=== PATIENT | female | born 1940 | race Caucasian/White ===

== ENCOUNTER 2022-10-31 23:12 | Inpatient (IN) | payer MEDICARE, OTHER ==
[2022-10-31] MEDS ORDERED: SODIUM CHLORIDE 0.9% 500 ML 500 ML IV STA (23:42)
[2022-10-31] MEDS ORDERED: PANTOPRAZOLE 40 MG/10 ML VIAL IVP STA (23:42)
[2022-10-31] MEDS ORDERED: ONDANSETRON 4 MG/2 ML VIAL IVP STA (23:42)
--- NOTE | 2022-10-31 23:45 | ED ---
GI Bleed HPI - General Chief complaint: GI Bleed Stated complaint: Nausea, Vomiting, Coffee-Ground Emesis Time Seen by Provider: 10/31/22 23:19 Source: EMS, RN notes reviewed, old records reviewed, Caregiver Mode of arrival: EMS Limitations: altered mental status, physical limitation - History of Present Illness Initial comments: This is an 82-year-old female to the emergency department for evaluation. Patient presents today for evaluation regards to suspected neurological upper GI bleed. Patient has been vomiting she states for 2 days and staff became concerned that she was vomiting blood. Patient states she may have an ulcer she states she has never had an ulcer before but she did here people talking that she may have an ulcer. Patient has no complaints of abdominal pain. No active nausea and vomiting. Patient states that she is not on blood thinners although she is relatively poor strain secondary to age MD complaint: blood streaked emesis, coffee ground emesis (Per history) -: days(s) Radiation: none Severity scale (1-10): 7 Quality: cramping Consistency: constant Improves with: none Worsens with: none Context: other Associated Symptoms: nausea, vomiting, loss of appetite - Related Data Home Medications Medication Instructions Recorded Confirmed Acetaminophen Tab [Tylenol] 650 mg PO Q6H PRN 11/01/22 11/01/22 Acetaminophen Tab [Tylenol] 650 mg PO TID@0800,1700,209911/01/22 11/01/22 Carboxymethylcellulose Sodium 1 drop BOTH EYES TID@0800,1700,2100 11/01/22 11/01/22 [Refresh Tears] Cholecalciferol [Vitamin D3 (25 25 mcg PO DAILY@1700 11/01/22 11/01/22 Mcg = 1000 Iu)] Denosumab [Prolia] 60 mg SQ Q180D 11/01/22 11/01/22 Ensure Enlive 120 ml PO BID@0800,1700 11/01/22 11/01/22 Eucerin Cream 1 applic TOPICAL DAILY 11/01/22 11/01/22 Guaifenesin/Dextromethorphan 10 ml PO Q4H PRN 11/01/22 11/01/22 [Guaifenesin-Dm 100-10 mg/5 ml] Ipratropium-Albuterol Nebulize 3 ml INHALATION RT-Q6H 11/01/22 11/01/22 [Duoneb 0.5 mg-3 mg/3 ml Soln] L.acidoph,Paracasei, B.lactis 1 cap PO DAILY@0800 11/01/22 11/01/22 [Probiotic] Magnesium Hydroxide [Milk of 7,200 ml PO Q2D PRN 11/01/22 11/01/22 Magnesia Concentrate] Metoprolol Succinate (ER) [Toprol 25 mg PO HS 11/01/22 11/01/22 XL] Multivit-Min/FA/Lycopen/Lutein 1 tab PO DAILY@1700 11/01/22 11/01/22 [Centrum Silver Tablet] Na Phos,M-B/Na Phos,Di-Ba [Fleet 133 ml RECTAL DAILY PRN 11/01/22 11/01/22 Adult] [place]-3/Dha/Epa/Fish Oil [Fish Oil 1 cap PO DAILY@1700 11/01/22 11/01/22 EC 1,200 mg Softgel] Vit C/E/Zn/Coppr/Lutein/Zeaxan 1 cap PO BID@0800,1700 11/01/22 11/01/22 [Preservision Areds 2 Softgel] bisacodyL [Dulcolax] 10 mg RECTAL DAILY PRN 11/01/22 11/01/22 cloNIDine HCL [Catapres] 0.2 mg PO Q8H PRN 11/01/22 11/01/22 guaiFENesin [Mucinex] 600 mg PO BID@0800,1700 11/01/22 11/01/22 polyethylene glycoL 3350 [Miralax] 17 gm PO DAILY@0800 11/01/22 11/01/22 Previous Rx's Medication Instructions Recorded Pantoprazole Sodium [Protonix] 40 mg PO DAILY 30 Days #30 tab 11/03/22 Allergies Allergy/AdvReac Type Severity Reaction Status Date / Time codeine AdvReac Nausea Verified 11/01/22 09:36 morphine AdvReac Nausea Verified 11/01/22 09:36 Review of Systems ROS Statement: Those systems with pertinent positive or pertinent negative responses have been documented in the HPI. ROS Other: All systems not noted in ROS Statement are negative. Past Medical History Past Medical History: Heart Failure, Hyperlipidemia, Hypertension, Rheumatoid Arthritis (RA) Past Surgical History: No Surgical Hx Reported, Orthopedic Surgery Additional Past Surgical History / Comment(s): bilat knees Past Psychological History: Anxiety Smoking Status: Never smoker Past Alcohol Use History: None Reported Past Drug Use History: None Reported General Exam General appearance: alert, in no apparent distress Head exam: Present: atraumatic, normocephalic, normal inspection Eye exam: Present: normal appearance, PERRL, EOMI. Absent: scleral icterus, conjunctival injection, periorbital swelling ENT exam: Present: normal exam, mucous membranes moist Neck exam: Present: normal inspection. Absent: tenderness, meningismus, lymphadenopathy Respiratory exam: Present: normal lung sounds bilaterally. Absent: respiratory distress, wheezes, rales, rhonchi, stridor Cardiovascular Exam: Present: regular rate, normal rhythm, normal heart sounds. Absent: systolic murmur, diastolic murmur, rubs, gallop, clicks GI/Abdominal exam: Present: soft, normal bowel sounds. Absent: distended, tend erness, guarding, rebound, rigid Extremities exam: Present: normal inspection, full ROM, normal capillary refill. Absent: tenderness, pedal edema, joint swelling, calf tenderness Back exam: Present: normal inspection Neurological exam: Present: alert, oriented X3, CN II-XII intact Psychiatric exam: Present: normal affect, normal mood Skin exam: Present: warm, dry, intact, normal color. Absent: rash Course Vital Signs 10/31/22 11/01/22 11/01/22 23:16 06:00 12:00 Temperature 97.4 F L Pulse Rate 107 H 107 H 106 H Respiratory 17 18 18 Rate Blood Pressure 144/96 118/89 133/90 O2 Sat by Pulse 93 L 95 94 L Oximetry 11/01/22 11/01/22 11/01/22 15:24 17:57 21:29 Temperature 98.6 F Pulse Rate 115 H 116 H 118 H Respiratory 18 18 20 Rate Blood Pressure 167/106 157/99 O2 Sat by Pulse 92 L 94 L 94 L Oximetry - Reevaluation(s) Reevaluation #1: 11/01/22 00:32 Medical record is reviewed Reevaluation #2: 11/01/22 00:32 Patient continues with no GI bleeding here in the ER Reevaluation #3: 11/01/22 01:26 Patient has no bloody emesis here in the ER no coffee ground emesis here in the ER Patient informed results questions answered Reevaluation #4: 11/01/22 00:32 Was pt. sent in by a medical professional or institution ([facility], [facility], urgent care, hospital, or senior care...) When possible be specific @ -no Did you speak to anyone other than the patient for history (EMS, parent, family, police, friend...)? What history was obtained from this source @ -no Did you review nursing and triage notes (agree or disagree)? Why? @ -agree Are old charts reviewed (outside hosp., previous admission, EMS record, old EKG, old radiological studies, urgent care reports/EKG's, senior care records)? Report findings @ -yes Differential Diagnosis (chest pain, altered mental status, abdominal pain women, abdominal pain men, vaginal bleeding, weakness, fever, dyspnea, syncope, headache, dizziness, GI bleed, back pain, seizure, CVA, palpatations, mental health, musculoskeletal)? @ -prior EKG interpreted by me (3pts min.). @ -no X-rays interpreted by me (1pt min.). @ -yes CT interpreted by me (1pt min.). @ -yes U/S interpreted by me (1pt. min.). @ -no What testing was considered but not performed or refused? (CT, X-rays, U/S, labs)? Why? @ -none What meds were considered but not given or refused? Why? @ -none Did you discuss the management of the patient with other professionals (professionals i.e. [facility], [facility] [facility], lab, RT, psych nurse, psychologist social, internet developer, teacher, casino surveillance officer, catalytic case operator)? Give summary @ -no Was smoking cessation discussed for >3mins.? @ -no Was critical care preformed (if so, how long)? @ -no Were there social determinants of health that impacted care today? How? (Homelessness, low income, unemployed, alcoholism, drug addiction, transportation, low edu. Level, literacy, decrease access to med. care, halfway, rehab)? @ -none Was there de-escalation of care discussed even if they declined (Discuss DNR or withdrawal of care, Hospice)? DNR status @ -no What co-morbidities impacted this encounter? (DM, HTN, Smoking, COPD, CAD, Cancer, CVA, ARF, Chemo, Hep., AIDS, mental health diagnosis, sleep apnea, mor bid obesity)? @ -none Was patient admitted / discharged? Hospital course, mention meds given and [place], prescriptions, significant lab abnormalities, going to OR and other pertinent info. @ -82 female to the emergency department for evaluation today. Patient presents today for evaluation regards to abdominal pain with small bowel structure gastric outlet obstruction with nausea vomiting and upper GI bleed. Patient be admitted for further evaluation management surgical treatment and GI evaluation, possible SMA syndrome Admitted Undiagnosed new problem with uncertain prognosis? @ -no Drug Therapy requiring intensive monitoring for toxicity (Heparin, Nitro, Insulin, Cardizem)? @ -no Were any procedures done? @ -no Diagnosis/symptom? @ -Abdominal pain upper GI bleed with gastric obstruction possible SMA syndrome Acute, or Chronic, or Acute on Chronic? @ -Acute Uncomplicated (without systemic symptoms) or Complicated (systemic symptoms)? @ -Complicated Side effects of treatment? @ -no Exacerbation, Progression, or Severe Exacerbation? @ -exacerbation Poses a threat to life or bodily function? How? (Chest pain, [place], [place], pneumonia, PE, COPD, DKA, ARF, appy, cholecystitis, CVA, Diverticulitis, Homicidal, Suicidal, threat to staff... and all critical care pts) @ -yes Reevaluation #5: Differential Abdominal Pain Women: Appendicitis, Cholecystitis, diverticulosis, ischemic bowel, pancreatitis, hepatitis, UTI, gastroenteritis, AAA, incarcerated hernia, bowel obstruction, constipation, inflammatory bowel, hepatitis, peptic ulcer disease, splenic infarction, perforated viscus, vulvitis, ovarian torsion, PID, kidney stone, placenta abruption, this is not meant to be an all-inclusive list - Consultations Consultation #1: Spoke with [facility] regarding admission there agreed Consultation #2: Spoke with Dr. Villagran will await on computed tomography scan reading before he agrees to accept the patient Medical Decision Making - Medical Decision Making 82 female to the emergency department for evaluation today. Patient presents today for evaluation regards to abdominal pain with small bowel structure gastric outlet obstruction with nausea vomiting and upper GI bleed. Patient be admitted for further evaluation management surgical treatment and GI evaluation, possible SMA syndrome - Lab Data Result diagrams: 11/02/22 05:49 11/02/22 05:49 Lab Results 11/01/22 11/01/22 11/01/22 Range/Units 00:00 00:05 00:05 WBC 9.7 (3.8-10.6) k/uL RBC 4.94 (3.80-5.40) m/uL Hgb 13.9 (11.4-16.0) gm/dL Hct 42.5 (34.0-46.0) % MCV 86.0 (80.0-100.0) fL MCH 28.2 (25.0-35.0) pg MCHC 32.8 (31.0-37.0) g/dL RDW 14.1 (11.5-15.5) % Plt Count 324 (150-450) k/uL MPV 7.7 Neutrophils % 87 % Lymphocytes % 7 % Monocytes % 5 % Eosinophils % 0 % Basophils % 0 % Neutrophils # 8.4 H (1.3-7.7) k/uL Lymphocytes # 0.7 L (1.0-4.8) k/uL Monocytes # 0.5 (0-1.0) k/uL Eosinophils # 0.0 (0-0.7) k/uL Basophils # 0.0 (0-0.2) k/uL PT 10.8 (9.0-12.0) sec INR 1.0 (<1.2) APTT 23.4 (22.0-30.0) sec Sodium (137-145) mmol/L Potassium (3.5-5.1) mmol/L Chloride (98-107) mmol/L Carbon Dioxide (22-30) mmol/L Anion Gap mmol/L BUN (7-17) mg/dL Creatinine (0.52-1.04) mg/dL Est GFR (CKD-EPI)AfAm (>60 ml/min/1.73 sqM) Est GFR (CKD-EPI)NonAf (>60 ml/min/1.73 sqM) Glucose (74-99) mg/dL Calcium (8.4-10.2) mg/dL Total Bilirubin (0.2-1.3) mg/dL AST (14-36) U/L ALT (4-34) U/L Alkaline Phosphatase (38-126) U/L Ammonia (<30) umol/L Troponin I (0.000-0.034) ng/mL Total Protein (6.3-8.2) g/dL Albumin (3.5-5.0) g/dL Blood Type B Positive Blood Type Confirm Blood Type Recheck No Previous Record Bld Type Recheck Status CABO Indicated Antibody Screen NEGATIVE Spec Expiration Date 11/04/2022 - 229911/01/22 11/01/22 11/01/22 Range/Units 00:05 00:05 00:05 WBC (3.8-10.6) k/uL RBC (3.80-5.40) m/uL Hgb (11.4-16.0) gm/dL Hct (34.0-46.0) % MCV (80.0-100.0) fL MCH (25.0-35.0) pg MCHC (31.0-37.0) g/dL RDW (11.5-15.5) % Plt Count (150-450) k/uL MPV Neutrophils % % Lymphocytes % % Monocytes % % Eosinophils % % Basophils % % Neutrophils # (1.3-7.7) k/uL Lymphocytes # (1.0-4.8) k/uL Monocytes # (0-1.0) k/uL Eosinophils # (0-0.7) k/uL Basophils # (0-0.2) k/uL PT (9.0-12.0) sec INR (<1.2) APTT (22.0-30.0) sec Sodium 136 L (137-145) mmol/L Potassium 3.5 (3.5-5.1) mmol/L Chloride 103 (98-107) mmol/L Carbon Dioxide 23 (22-30) mmol/L Anion Gap 10 mmol/L BUN 25 H (7-17) mg/dL Creatinine 0.43 L (0.52-1.04) mg/dL Est GFR (CKD-EPI)AfAm >90 (>60 ml/min/1.73 sqM) Est GFR (CKD-EPI)NonAf >90 (>60 ml/min/1.73 sqM) Glucose 145 H (74-99) mg/dL Calcium 9.5 (8.4-10.2) mg/dL Total Bilirubin 0.6 (0.2-1.3) mg/dL AST 25 (14-36) U/L ALT 22 (4-34) U/L Alkaline Phosphatase 92 (38-126) U/L Ammonia 12 (<30) umol/L Troponin I <0.012 (0.000-0.034) ng/mL Total Protein 7.1 (6.3-8.2) g/dL Albumin 3.8 (3.5-5.0) g/dL Blood Type Blood Type Confirm Blood Type Recheck Bld Type Recheck Status Antibody Screen Spec Expiration Date 11/01/22 Range/Units 01:02 WBC (3.8-10.6) k/uL RBC (3.80-5.40) m/uL Hgb (11.4-16.0) gm/dL Hct (34.0-46.0) % MCV (80.0-100.0) fL MCH (25.0-35.0) pg MCHC (31.0-37.0) g/dL RDW (11.5-15.5) % Plt Count (150-450) k/uL MPV Neutrophils % % Lymphocytes % % Monocytes % % Eosinophils % % Basophils % % Neutrophils # (1.3-7.7) k/uL Lymphocytes # (1.0-4.8) k/uL Monocytes # (0-1.0) k/uL Eosinophils # (0-0.7) k/uL Basophils # (0-0.2) k/uL PT (9.0-12.0) sec INR (<1.2) APTT (22.0-30.0) sec Sodium (137-145) mmol/L Potassium (3.5-5.1) mmol/L Chloride (98-107) mmol/L Carbon Dioxide (22-30) mmol/L Anion Gap mmol/L BUN (7-17) mg/dL Creatinine (0.52-1.04) mg/dL Est GFR (CKD-EPI)AfAm (>60 ml/min/1.73 sqM) Est GFR (CKD-EPI)NonAf (>60 ml/min/1.73 sqM) Glucose (74-99) mg/dL Calcium (8.4-10.2) mg/dL Total Bilirubin (0.2-1.3) mg/dL AST (14-36) U/L ALT (4-34) U/L Alkaline Phosphatase (38-126) U/L Ammonia (<30) umol/L Troponin I (0.000-0.034) ng/mL Total Protein (6.3-8.2) g/dL Albumin (3.5-5.0) g/dL Blood Type Blood Type Confirm B Positive Blood Type Recheck Bld Type Recheck Status Antibody Screen Spec Expiration Date - Radiology Data Radiology results: report reviewed (CT head and pelvis is positive gastric L obstruction GI bleed chest x-rays negative for acute disease), image reviewed Disposition Clinical Impression: Nausea & vomiting, Upper gastrointestinal hemorrhage, Gastric outlet obstruction, Abdominal pain Disposition: ADMITTED IP TO THIS HOSP Condition: Fair Is patient prescribed a controlled substance at d/c from ED?: No Time of Disposition: 01:20
[2022-11-01 00:30] LABS: Partial Thromboplastin Time 23.4 sec (22.0-30.0); Prothrombin Time 10.8 sec (9.0-12.0)
[2022-11-01 00:34] LABS: ALT 22 U/L (4-34); AST 25 U/L (14-36); African American GFR (CKD) >90 (>60 ml/min/1.73 sqM); Albumin 3.8 g/dL (3.5-5.0); Alkaline Phosphatase 92 U/L (38-126); Anion Gap 10 mmol/L; Blood Urea Nitrogen 25 mg/dL (7-17); Calcium 9.5 mg/dL (8.4-10.2); Carbon Dioxide 23 mmol/L (22-30); Chloride 103 mmol/L (98-107); Glucose 145 mg/dL (74-99); Non-African American GFR(CKD) >90 (>60 ml/min/1.73 sqM); Potassium 3.5 mmol/L (3.5-5.1); Sodium 136 mmol/L (137-145); Total Bilirubin 0.6 mg/dL (0.2-1.3); Total Protein 7.1 g/dL (6.3-8.2)
[2022-11-01 00:35] LABS: Basophils % (A) 0 %; Eosinophils % (A) 0 %; HCT 42.5 % (34.0-46.0); HGB 13.9 gm/dL (11.4-16.0); Lymphocytes # (A) 0.7 k/uL (1.0-4.8); Lymphocytes % (A) 7 %; MCH 28.2 pg (25.0-35.0); MCHC 32.8 g/dL (31.0-37.0); Mean Platelet Volume 7.7; Monocytes # (A) 0.5 k/uL (0-1.0); Monocytes % (A) 5 %; Neutrophils # (A) 8.4 k/uL (1.3-7.7); Neutrophils % (A) 87 %; Platelet Count 324 k/uL (150-450); RBC 4.94 m/uL (3.80-5.40); RDW 14.1 % (11.5-15.5); WBC 9.7 k/uL (3.8-10.6)
[2022-11-01] MEDS ORDERED: ONDANSETRON 4 MG/2 ML VIAL IVP PRN (01:25)
[2022-11-01] MEDS ORDERED: NALOXONE 0.4 MG/ML 1 ML VIAL IV PRN (01:25)
--- NOTE | 2022-11-01 02:20 | CT ---
EXAM: CT Abdomen and Pelvis With Intravenous Contrast CLINICAL HISTORY: pain TECHNIQUE: Axial computed tomography images of the abdomen and pelvis with intravenous contrast. CTDI is 22.16 mGy and DLP is 1197.5 mGy-cm. This CT exam was performed using one or more of the following dose reduction techniques: automated exposure control, adjustment of the mA and/or kV according to patient size, and/or use of iterative reconstruction technique. COMPARISON: No relevant prior studies available. FINDINGS: Limitations: There is extensive respiratory artifact, which degrades image quality throughout the entire examination. Lung bases: Unremarkable. No mass. No consolidation. ABDOMEN: Liver: Evaluation of the liver is limited. No obvious focal abnormality. Gallbladder and bile ducts: The gallbladder is grossly unremarkable. Detailed evaluation limited. No biliary dilatation. No calcified stones. Pancreas: The pancreas is grossly unremarkable. No ductal dilation. Spleen: Spleen demonstrates no obvious significant abnormality. Adrenals: Unremarkable. No mass. Kidneys and ureters: The kidneys demonstrate normal enhancement. No hydronephrosis or definite obstructing nephrolithiasis. Bilateral renal cortical cysts noted with the largest cyst laterally on the left measuring 7.2 x 5.5 cm. Stomach and bowel: Prominent gas and fluid distention of the stomach. Fall distention of the distal thoracic esophagus with fluid and prominent distention of the descending portion of the duodenum with transition in decompression at the horizontal portion as it crosses the midline. The remaining small bowel loops are unremarkable without evidence for bowel obstruction. No obvious focal bowel mucosal abnormality; however, detailed evaluation is degraded by extensive respiratory artifact. Mild stool burden. PELVIS: Appendix: The appendix is not clearly delineated on this examination. Bladder: Unremarkable. No mass. Reproductive: Calcified fibroid noted in the uterus. ABDOMEN and PELVIS: Intraperitoneal space: Unremarkable. No free air. No significant fluid collection. Bones/joints: Degenerative changes throughout the thoracolumbar spine. Severe degenerative changes of the right hip with flattening and subluxation of the femoral head. No acute fracture. Soft tissues: Unremarkable. Vasculature: Unremarkable. No abdominal aortic aneurysm. Lymph nodes: Unremarkable. No enlarged lymph nodes. IMPRESSION: 1. There is extensive respiratory artifact, which degrades image quality throughout the entire examination. 2. Prominent gas and fluid distention of the stomach. Fall distention of the distal thoracic esophagus with fluid and prominent distention of the descending portion of the duodenum with transition in decompression at the horizontal portion as it crosses the midline. This may represent gastroduodenitis. However, this appearance raises the suspicion for SMA syndrome. 3. The remaining small bowel loops are unremarkable without evidence for bowel obstruction. No obvious focal bowel mucosal abnormality; however, detailed evaluation is degraded by extensive respiratory artifact. Mild stool burden. No free intraperitoneal fluid or definite pneumoperitoneum.
[2022-11-01] MEDS: SODIUM CHLORIDE 0.9% 1,000 ML IV SCH ×2 (03:14→18:25)
--- NOTE | 2022-11-01 05:01 | XR ---
EXAM: XR Chest, 1 View CLINICAL HISTORY: ITS.REASON XR Reason: confirm NG tube placement TECHNIQUE: Frontal view of the chest. COMPARISON: No relevant prior studies available. FINDINGS: Lungs: Curvilinear subsegmental changes in the infrahilar regions. The lungs are otherwise well aerated. The pulmonary vasculature demonstrates no significant radiographic abnormality. Pleural space: Unremarkable. No pneumothorax. No large pleural effusion. Heart: The cardiac silhouette is within normal limits, accounting for portable technique. Mediastinum: No significant abnormality. No tracheal the Filipino. Bones/joints: Unremarkable. Tubes, lines and devices: The nasogastric tube traverses the mediastinum and terminates in the left upper quadrant. IMPRESSION: The nasogastric tube traverses the mediastinum and terminates in the left upper quadrant in the region of the mid body of the stomach.
--- NOTE | 2022-11-01 08:40 | P.HPIM ---
History of Present Illness This is a pleasant 82 years old female with past medical history of Heart Failure, Hyperlipidemia, Hypertension, Rheumatoid Arthritis pt arrives to ED from [facility] via EMS for c/o coffee ground emesis x2 on tuesday yesterday. pt c/o nausea. skin pale/warm/dry. A&Ox4. Patient is a known history of rheumatoid arthritis and she is bedbound for severe deformity of the knees also she has deformities of the hands fingers. She is bedbound. However she's awake alert and oriented. Currently lying in bed comfortable, NG tube in place. Patient denies any abdominal pain. No change in bowel movements. She denies smoking alcohol or illicit drugs. No other complaints. No chest pain or dyspnea. No change in urine habits. No headache weakness numbness or dizziness. Patient is mildly tachycardic with heart rate around 107. Blood pressure stable. Patient is afebrile. Hemoglobin stable at 13.9 which is within the reference range. Most of CBC, INR and BMP, liver enzymes, troponin and ammonia levels are unremarkable. Chest x-ray: No acute process. NG tube the stomach region. CT of the abdomen and pelvis with intravenous contrast: Prominent gas and fluid distention of the stomach. Full distention of the distal thoracic esophagus with prominent distention of the descending portion of the duodenum with transition in decompression of the horizontal portion as it crosses the midline. This may represent gastroenteritis over there is suspicion for SMA syndrome. No evidence of small bowel obstruction Normal saline at 75 mL/h was started emergency room Review of Systems Review of systems CONSTITUTIONAL: No fever, no malaise, no fatigue. HEENT: No recent visual problems or hearing problems. Denied any sore throat. CARDIOVASCULAR: No orthopnea, PND, no palpitations, no syncope. PULMONARY: No shortness of breath, no cough, no hemoptysis. GASTROINTESTINAL: No diarrhea, no abdominal pain. Normoactive bowel sounds. NEUROLOGICAL: No headaches, no weakness, no numbness. HEMATOLOGICAL: Denies any bleeding or petechiae. GENITOURINARY: Denies any burning micturition, frequency, or urgency. MUSCULOSKELETAL/RHEUMATOLOGICAL: Denies any joint pain, swelling, or any muscle pain. ENDOCRINE: Denies any polyuria or polydipsia. Past Medical History Past Medical History: Heart Failure, Hyperlipidemia, Hypertension, Rheumatoid Arthritis (RA) Past Surgical History: No Surgical Hx Reported, Orthopedic Surgery Additional Past Surgical History / Comment(s): bilat knees Past Psychological History: Anxiety Smoking Status: Never smoker Past Alcohol Use History: None Reported Past Drug Use History: None Reported Medications and Allergies Allergies Allergy/AdvReac Type Severity Reaction Status Date / Time codeine Allergy Nausea Verified 10/31/22 23:25 morphine Allergy Nausea Verified 10/31/22 23:25 Physical Exam Vitals: Vital Signs Temp Pulse Resp BP Pulse Ox 11/01/22 06:00 107 H 18 118/89 95 10/31/22 23:16 97.4 F L 107 H 17 144/96 93 L Intake and Output 10/31/22 11/01/22 11/01/22 22:59 06:59 14:59 Other: Weight 71.668 kg GENERAL: The patient is alert and oriented x3, not in any acute distress. Well developed, well nourished. HEENT: Pupils are round and equally reacting to light. EOMI. No scleral icterus. No conjunctival pallor. Normocephalic, atraumatic. No pharyngeal erythema. No thyromegaly. CARDIOVASCULAR: S1 and S2 present. No murmurs, rubs, or gallops. PULMONARY: Chest is clear to auscultation, no wheezing , no crackles. ABDOMEN: Soft, nontender, nondistended, normoactive bowel sounds. No palpable organomegaly. NG tube in place MUSCULOSKELETAL: No joint swelling or deformity. -EXTREMITIES: No cyanosis, clubbing, or pedal edema. Both knees are in flexion posture secondary to contracture (looks chronic) ulnar deviations of the hand fingers bilaterally NEUROLOGICAL: Gross neurological examination did not reveal any focal deficits. SKIN: No rashes. no petechiae. Results CBC & Chem 7: 11/01/22 00:05 11/01/22 00:05 Labs: Abnormal Lab Results - Last 24 Hours (Table) 11/01/22 11/01/22 Range/Units 00:05 00:05 Neutrophils # 8.4 H (1.3-7.7) k/uL Lymphocytes # 0.7 L (1.0-4.8) k/uL Sodium 136 L (137-145) mmol/L BUN 25 H (7-17) mg/dL Creatinine 0.43 L (0.52-1.04) mg/dL Glucose 145 H (74-99) mg/dL Assessment and Plan Assessment: Coffee-ground vomitus suspicious for acute GI bleed Distended esophagus, stomach and duodenum suspicious for acute gastroenteritis Versus SMA Syndrome Hyperlipidemia Hypertension Chronic heart failure History of rheumatoid arthritis Plan: Continue gentle hydration continue with symptomatic treatment with anti-emetic Surgical team consult Nothing by mouth Monitor hemoglobin Protonix Labs and medication were reviewed.. Continue same treatment. Continue with symptomatic treatment. Resume home medication. Monitor labs and vitals. DVT and GI prophylaxis. Further recommendations as per clinical course of the patient DVT prophylaxis: no Subcutaneous heparin for GI bleed, S CD GI Prophylaxis: Ppi PT/OT: Pending Prognosis is guarded
[2022-11-01] MEDS: PANTOPRAZOLE 40 MG/10 ML VIAL IV SCH (09:10)
[2022-11-01] MEDS ORDERED: IOPAMIDOL CONTRAST (ORAL USE) VIAL PO PRN (11:21)
--- NOTE | 2022-11-01 13:53 | P.GSCN ---
History of Present Illness Consult date: 11/01/22 History of present illness: CHIEF COMPLAINT: Vomiting, coffee-ground emesis HISTORY OF PRESENT ILLNESS: This is a 82-year-old female who presented to the hospital with 2 day history of nausea and vomiting at [facility]. Reporting that the emesis was dark and possibly coffee-ground consistency. She did have some mild upper abdomen discomfort. She reports regular bowel movements. She's never had an EGD or colonoscopy completed. Computed tomography scan abdomen and pelvis reported prominent gas and fluid distention of the stomach. Distention of the distal thoracic esophagus with fluid and prominent distention of the descending portion of the duodenum. Patient did have NG tube placed with currently 250 mL of dark brown green output. Patient denies being on any blood thinners or NSAIDs. Hemoglobin stable at 13.9. She has been tachycardic. She denies any prior abdominal surgeries. Patient reports that the nausea, vomiting and abdominal discomfort have improved since NG tube placed PAST MEDICAL HISTORY: Heart Failure, Hyperlipidemia, Hypertension, Rheumatoid Arthritis (RA), anxiety PAST SURGICAL HISTORY: See below MEDICATIONS: See below ALLERGIES: See below SOCIAL HISTORY: No illicit drug use. REVIEW OF SYSTEMS: CONSTITUTIONAL: Denies fever or chills. HEENT: Denies blurred vision, vision changes, or eye pain. Denies hemoptysis CARDIOVASCULAR: Denies chest pain or pressure. RESPIRATORY: No shortness of breath. GASTROINTESTINAL: See HPI for pertinent findings HEMATOLOGIC: Denies bleeding disorders. GENITOURINARY: Denies any blood in urine or increased urinary frequency. SKIN: Denies pruitis. Denies rash. PHYSICAL EXAM: VITAL SIGNS: Reviewed GENERAL: Well-developed in no acute distress. HEENT: No sclera icterus. Extraocular movements grossly intact. Moist buccal mucosa. Head is atraumatic, normocephalic. No nasal drainage. ABDOMEN: Soft. Nondistended. Nontender. NG tube in place with dark brown, greenish output NEUROLOGIC: Alert and oriented. Cranial nerves II through XII grossly intact. LABORATORY DATA: WBC is 9.7 Hgb 13.9 and platelets 324 Sodium 136 potassium 3.5 creatinine 0.43 INR 1.0 IMAGING: Computed tomography scan abdomen and pelvis extensive respiratory artifact. Prominent gas and fluid distention of the stomach. Distention of the distal thoracic esophagus with fluid and prominent distention of the descending portion of the duodenal and will transition intake pressing at the horizontal portion as it crosses the midline. This may represent a gastroduodenitis. However the appearance raises suspicion for SMA syndrome. Small bowel loops are unremarkable without evidence for bowel obstruction. No intraperitoneal fluid or definite pneumoperitoneum. ASSESSMENT: 1. Nausea and vomiting with upper abdominal pain 2. Computed tomography scan showing distention of the stomach, esophagus and duodenum PLAN: -Repeat computed tomography scan abdomen and pelvis with oral contrast for further evaluation -Continue NG tube for decompression -Keep patient nothing by mouth -EKG ordered for tachycardia. EKG did report sinus tach heart rate 111 -Patient tentatively scheduled for EGD tomorrow, 11/02/[address]agran -Continue IV Protonix -Continue IV fluid -Continue antibiotics Thank you for this consultation Physician Tobacco Sorter note has been reviewed by physician. Signing provider agrees with the documented findings, assessment, and plan of care. Past Medical History Past Medical History: Heart Failure, Hyperlipidemia, Hypertension, Rheumatoid Arthritis (RA) Past Surgical History: No Surgical Hx Reported, Orthopedic Surgery Additional Past Surgical History / Comment(s): bilat knees Past Psychological History: Anxiety Smoking Status: Never smoker Past Alcohol Use History: None Reported Past Drug Use History: None Reported Medications and Allergies Home Medications Medication Instructions Recorded Confirmed Type Acetaminophen Tab [Tylenol] 650 mg PO Q6H PRN 11/01/22 11/01/22 History Acetaminophen Tab [Tylenol] 650 mg PO TID@0800,1700,209911/01/22 11/01/22 History Carboxymethylcellulose Sodium 1 drop BOTH EYES TID@0800,1700,209911/01/22 11/01/22 History [Refresh Tears] Cholecalciferol [Vitamin D3 (25 25 mcg PO DAILY@1700 11/01/22 11/01/22 History Mcg = 1000 Iu)] Denosumab [Prolia] 60 mg SQ Q180D 11/01/22 11/01/22 History Ensure Enlive 120 ml PO BID@0800,1700 11/01/22 11/01/22 History Eucerin Cream 1 applic TOPICAL DAILY 11/01/22 11/01/22 History Guaifenesin/Dextromethorphan 10 ml PO Q4H PRN 11/01/22 11/01/22 History [Guaifenesin-Dm 100-10 mg/5 ml] Ipratropium-Albuterol Nebulize 3 ml INHALATION RT-Q6H 11/01/22 11/01/22 History [Duoneb 0.5 mg-3 mg/3 ml Soln] L.acidoph,Paracasei, B.lactis 1 cap PO DAILY@0800 11/01/22 11/01/22 History [Probiotic] Magnesium Hydroxide [Milk of 7,200 ml PO Q2D PRN 11/01/22 11/01/22 History Magnesia Concentrate] Metoprolol Succinate (ER) [Toprol 25 mg PO HS 11/01/22 11/01/22 History Xl] Multivit-Min/FA/Lycopen/Lutein 1 tab PO DAILY@1700 11/01/22 11/01/22 History [Centrum Silver Tablet] Na Phos,M-B/Na Phos,Di-Ba [Fleet 133 ml RECTAL DAILY PRN 11/01/22 11/01/22 History Adult] [place]-3/Dha/Epa/Fish Oil [Fish Oil 1 cap PO DAILY@1700 11/01/22 11/01/22 History EC 1,200 mg Softgel] Vit C/E/Zn/Coppr/Lutein/Zeaxan 1 cap PO BID@0800,1700 11/01/22 11/01/22 History [Preservision Areds 2 Softgel] bisacodyL [Dulcolax] 10 mg RECTAL DAILY PRN 11/01/22 11/01/22 History cloNIDine HCL [Catapres] 0.2 mg PO Q8H PRN 11/01/22 11/01/22 History guaiFENesin [Mucinex] 600 mg PO BID@0800,1700 11/01/22 11/01/22 History polyethylene glycoL 3350 [Miralax] 17 gm PO DAILY@0800 11/01/22 11/01/22 History Allergies Allergy/AdvReac Type Severity Reaction Status Date / Time codeine AdvReac Nausea Verified 11/01/22 09:36 morphine AdvReac Nausea Verified 11/01/22 09:36 Surgical - Exam Vital Signs Temp Pulse Resp BP Pulse Ox 97.4 F L 107 H 17 144/96 93 L 10/31/22 23:16 10/31/22 23:16 10/31/22 23:16 10/31/22 23:16 10/31/22 23:16 Results - Labs 11/01/22 00:05 11/01/22 00:05 Abnormal Lab Results - Last 24 Hours (Table) 11/01/22 11/01/22 Range/Units 00:05 00:05 Neutrophils # 8.4 H (1.3-7.7) k/uL Lymphocytes # 0.7 L (1.0-4.8) k/uL Sodium 136 L (137-145) mmol/L BUN 25 H (7-17) mg/dL Creatinine 0.43 L (0.52-1.04) mg/dL Glucose 145 H (74-99) mg/dL Diabetes panel 11/01/22 Range/Units 00:05 Sodium 136 L (137-145) mmol/L Potassium 3.5 (3.5-5.1) mmol/L Chloride 103 (98-107) mmol/L Carbon Dioxide 23 (22-30) mmol/L BUN 25 H (7-17) mg/dL Creatinine 0.43 L (0.52-1.04) mg/dL Glucose 145 H (74-99) mg/dL Calcium 9.5 (8.4-10.2) mg/dL AST 25 (14-36) U/L ALT 22 (4-34) U/L Alkaline Phosphatase 92 (38-126) U/L Total Protein 7.1 (6.3-8.2) g/dL Albumin 3.8 (3.5-5.0) g/dL Calcium panel 11/01/22 Range/Units 00:05 Calcium 9.5 (8.4-10.2) mg/dL Albumin 3.8 (3.5-5.0) g/dL Pituitary panel 11/01/22 Range/Units 00:05 Sodium 136 L (137-145) mmol/L Potassium 3.5 (3.5-5.1) mmol/L Chloride 103 (98-107) mmol/L Carbon Dioxide 23 (22-30) mmol/L BUN 25 H (7-17) mg/dL Creatinine 0.43 L (0.52-1.04) mg/dL Glucose 145 H (74-99) mg/dL Calcium 9.5 (8.4-10.2) mg/dL Adrenal panel 11/01/22 Range/Units 00:05 Sodium 136 L (137-145) mmol/L Potassium 3.5 (3.5-5.1) mmol/L Chloride 103 (98-107) mmol/L Carbon Dioxide 23 (22-30) mmol/L BUN 25 H (7-17) mg/dL Creatinine 0.43 L (0.52-1.04) mg/dL Glucose 145 H (74-99) mg/dL Calcium 9.5 (8.4-10.2) mg/dL Total Bilirubin 0.6 (0.2-1.3) mg/dL AST 25 (14-36) U/L ALT 22 (4-34) U/L Alkaline Phosphatase 92 (38-126) U/L Total Protein 7.1 (6.3-8.2) g/dL Albumin 3.8 (3.5-5.0) g/dL
[2022-11-01 15:51] LABS: HCT 39.7 % (34.0-46.0); HGB 13.1 gm/dL (11.4-16.0); MCH 28.6 pg (25.0-35.0); MCV 86.5 fL (80.0-100.0); Mean Platelet Volume 8.4; Platelet Count 297 k/uL (150-450); RBC 4.59 m/uL (3.80-5.40); RDW 14.4 % (11.5-15.5); WBC 11.1 k/uL (3.8-10.6)
--- NOTE | 2022-11-01 16:46 | CT ---
EXAMINATION TYPE: CT abdomen pelvis wo con CT DLP: 732.6 mGycm, Automated exposure control for dose reduction was used. DATE OF EXAM: 11/01/2022 4:30 PM COMPARISON: CT abdomen pelvis most recent from 11/01/2022 CLINICAL INDICATION:Female, 82 years old with history of abdominal pain, vomiting; abdominal pain, vo miting TECHNIQUE: Axial CT of the abdomen and pelvis. Sagittal and coronal reformats were created on a [employer] workstation. Contrast used: mL of , (none if empty) Oral contrast used: with Oral Contrast (none if empty) FINDINGS: LOWER CHEST: There is mildly enlarged for size with coronary artery cusp medications. ABDOMEN LIVER: Unremarkable GALLBLADDER AND BILE DUCTS: Unremarkable. PANCREAS: Unremarkable. SPLEEN: Unremarkable. ADRENAL GLANDS: Unremarkable. KIDNEYS AND URETERS: High density excreted IV contrast in the collecting system from same day CT scan . No evidence of hydronephrosis or renal calculus. Bilateral renal cysts. PELVIS BLADDER: Unremarkable REPRODUCTIVE: Enlarged fibroid uterus with calcification. ABDOMEN & PELVIS STOMACH AND BOWEL: Nasogastric tube terminating in appropriate position. No evidence of bowel obstruc tion. PERITONEUM/RETROPERITONEUM: No evidence of pneumoperitoneum or free fluid. VASCULATURE: No evidence of aortic aneurysm. 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 Small joint effusion is present. Severe degeneration changes of the spine. LYMPH NODES: No gross evidence for lymphadenopathy. SOFT TISSUE/ABDOMINAL WALL: Unremarkable IMPRESSION: 1. There is interval decompression of the gastric lumen with a nasogastric tube in appropriate posit ion. The remainder the exam is not changed from prior change from prior. No evidence for bowel obstru ction. 2. Fibroid uterus.
[2022-11-01] MEDS ORDERED: METOPROLOL SUCCINATE (ER) 25 MG TAB.ER.24H PO STA (21:09)
[2022-11-02] MEDS ORDERED: hydrALAZINE HCL 20 MG/ML 1 ML VIAL IVP PRN (00:30)
[2022-11-02] MEDS: SODIUM CHLORIDE 0.9% 1,000 ML IV SCH ×2 (04:42→20:43)
[2022-11-02] MEDS ORDERED: LIDOCAINE 2% INJ 20 MG/ML (2 ML VIAL) ONE (07:04)
[2022-11-02] MEDS ORDERED: PROPOFOL 10 MG/ML 20 ML VIAL IV ONE (07:04)
[2022-11-02] MEDS ORDERED: IV FLUID CONTINUATION 1,000 ML IV ONE (07:08)
--- NOTE | 2022-11-02 07:21 | P.OP ---
Date of Procedure: 11/02/22 Preoperative Diagnosis: Nausea, vomiting Postoperative Diagnosis: Antral gastritis Esophagitis No evidence of gastric outlet obstruction Procedure(s) Performed: EGD Anesthesia: MAC Surgeon: Baldo Villagran Pathology: other (Antrum, esophagus) Condition: stable Disposition: PACU Description of Procedure: Patient's placed on the endoscopy table in the lateral position. She received IV sedation. The gastro-/oropharynx passed in the esophagus and stomach. Scope was then placed through the pylorus. The first and second portion duodenum. Normal. Scope summer back the antrum this was mildly inflamed. A biopsies performed. Scope was unretroflexed and the remainder of the stomach appeared normal. There was a hiatal hernia noted. The GE junction was at 38 cm per the distal esophagus appeared mildly inflamed a biopsies performed. The proximal esophagus appeared normal. Scope withdrawn for patient.
[2022-11-02] MEDS: PANTOPRAZOLE 40 MG/10 ML VIAL IV SCH (08:52)
[2022-11-02 09:24] LABS: Basophils # (A) 0.05 X 10*3/uL (0.00-0.10); Basophils % (A) 0.4 %; Eosinophils # (A) 0.03 X 10*3/uL (0.04-0.35); Eosinophils % (A) 0.3 %; HCT 39.7 % (37.2-46.3); HGB 12.7 d/dL (12.0-15.0); Lymphocytes # (A) 0.82 X 10*3/uL (0.90-5.00); Lymphocytes % (A) 6.9 %; MCH 27.3 pg (27.0-32.0); MCV 85.4 FL (80.0-97.0); Mean Platelet Volume 10.3 FL (9.5-12.2); Monocytes # (A) 0.94 X 10*3/uL (0.20-1.00); Monocytes % (A) 7.9 %; NRBC Per 100 WBC 0 X 10*3/uL (0.00-0.01); Neutrophils # (A) 9.95 X 10*3/uL (1.80-7.70); Neutrophils % (A) 84.1 %; Platelet Count 307 X 10*3/uL (140-440); RBC 4.65 X 10*6/uL (4.10-5.20); RDW 15.2 % (11.5-14.5); WBC 11.84 X 10*3/uL (4.50-10.00)
[2022-11-02 10:13] LABS: ALT 32 U/L (8-44); AST 29 U/L (13-35); Albumin 4.1 d/dL (3.8-4.9); Albumin/Globulin Ratio 1.71 Ratio (1.60-3.17); Alkaline Phosphatase 74 U/L (41-126); BUN/Creat Ratio 41.25 Ratio (12.00-20.00); Blood Urea Nitrogen 16.5 mg/dL (9.0-27.0); Calcium 8.9 mg/dL (8.7-10.3); Carbon Dioxide 24.8 mmol/L (21.6-31.8); Chloride 104 mmol/L (96-109); Globulin 2.4 d/dL (1.6-3.3); Glucose 99 mg/dL (70-110); Phosphorus 2.2 mg/dL (2.4-5.1); Potassium 3.6 mmol/L (3.5-5.5); Sodium 140 mmol/L (135-145); Total Bilirubin 0.5 mg/dL (0.3-1.2); Total Protein 6.5 d/dL (6.2-8.2)
--- NOTE | 2022-11-02 12:43 | P.PN ---
Subjective Progress Note Date: 11/02/22 CHIEF COMPLAINT: Nausea and vomiting HISTORY OF PRESENT ILLNESS: Patient status post EGD today revealing antral gastritis, esophagitis and no evidence of gastric outlet obstruction. Patient lying in bed comfortably. Reports no abdominal pain. No nausea or vomiting. Her repeat computed tomography scan from yesterday reports interval decompression of the gastric lumen with NG tube. No evidence for bowel obstruction. Fibroid uterus. Afebrile. Mildly tachycardic. WBC 11.8 for Hgb 12.7 PHYSICAL EXAM: VITAL SIGNS: Reviewed. GENERAL: Well-developed in no acute distress. ABDOMEN: Soft. Nondistended. Nontender. NEUROLOGIC: Alert and oriented. Cranial nerves II through XII grossly intact. ASSESSMENT: 1. Nausea and vomiting resolved. Status post EGD revealing antral gastritis, esophagitis and no evidence of gastric outlet obstruction PLAN: -Advanced at full liquids -Continue PPI -Continue supportive care Physician Supply Chain Manager note has been reviewed by physician. Signing provider agrees with the documented findings, assessment, and plan of care. Objective - Vital Signs Vital signs: Vital Signs Temp 97.6 F 11/02/22 07:49 Pulse 95 11/02/22 07:49 Resp 17 11/02/22 07:49 BP 135/83 11/02/22 07:49 Pulse Ox 94 L 11/02/22 07:49 FiO2 Intake & Output 11/01/22 11/02/22 11/02/22 18:59 06:59 18:59 Intake Total 200 Balance 200 Weight 71.668 kg Intake: IV 200 Other: Voiding Method Diaper Diaper External Catheter External Catheter # Voids 0 - Labs CBC & Chem 7: 11/02/22 05:49 11/02/22 05:49 Labs: Abnormal Lab Results - Last 24 Hours (Table) 11/01/22 11/02/22 11/02/22 Range/Units 15:03 05:49 05:49 WBC 11.1 H 11.84 H (3.8-10.6) k/uL RDW 15.2 H (11.5-14.5) % Neutrophils # 9.95 H (1.80-7.70) X 10*3/uL Lymphocytes # 0.82 L (0.90-5.00) X 10*3/uL Eosinophils # 0.03 L (0.04-0.35) X 10*3/uL Creatinine 0.4 L (0.6-1.5) mg/dL BUN/Creatinine Ratio 41.25 H (12.00-20.00) Ratio Phosphorus 2.2 L (2.4-5.1) mg/dL
--- NOTE | 2022-11-02 22:33 | P.PN ---
Subjective This is a pleasant 82 years old female with past medical history of Heart Failure, Hyperlipidemia, Hypertension, Rheumatoid Arthritis pt arrives to ED from [facility] via EMS for c/o coffee ground emesis x2 on tuesday yesterday. pt c/o nausea. skin pale/warm/dry. A&Ox4. Patient is a known history of rheumatoid arthritis and she is bedbound for se elmer deformity of the knees also she has deformities of the hands fingers. She is bedbound. However she's awake alert and oriented. Currently lying in bed comfortable, NG tube in place. Patient denies any abdominal pain. No change in bowel movements. She denies smoking alcohol or illicit drugs. No other complaints. No chest pain or dyspnea. No change in urine habits. No headache weakness numbness or dizziness. Patient is mildly tachycardic with heart rate around 107. Blood pressure sta ble. Patient is afebrile. Hemoglobin stable at 13.9 which is within the reference range. Most of CBC, INR and BMP, liver enzymes, troponin and ammonia levels are unremarkable. Chest x-ray: No acute process. NG tube the stomach region. CT of the abdomen and pelvis with intravenous contrast: Prominent gas and fluid distention of the stomach. Full distention of the distal thoracic esophagus with prominent distention of the descending portion of the duodenum with transition in decompression of the horizontal portion as it crosses the midline. This may represent gastroenteritis over there is suspicion for SMA syndrome. No evidence of small bowel obstruction Normal saline at 75 mL/h was started emergency room 11/02/2022 No more coffee ground vomitus, no new symptoms Hemodynamically stable EGD showed antral gastritis, esophagitis and no gastric outlet obstruction Patient continue on the Protonix twice daily Liquid diet Discontinue IV fluid Monitored for another 24 hours and if she remains stable and improvement she may be considered for discharge in 24- 48 hours Objective - Vital Signs Vital signs: Vital Signs Temp 97.6 F 11/02/22 07:49 Pulse 95 11/02/22 07:49 Resp 17 11/02/22 07:49 BP 135/83 11/02/22 07:49 Pulse Ox 94 L 11/02/22 07:49 FiO2 Intake & Output 11/01/22 11/02/22 11/02/22 18:59 06:59 18:59 Intake Total 200 Balance 200 Weight 71.668 kg Intake: IV 200 Other: Voiding Method Diaper Diaper External Catheter External Catheter # Voids 0 - Exam GENERAL: The patient is alert and oriented x3, not in any acute distress. Well developed, well nourished. HEENT: Pupils are round and equally reacting to light. EOMI. No scleral icterus. No conjunctival pallor. Normocephalic, atraumatic. No pharyngeal erythema. No thyromegaly. CARDIOVASCULAR: S1 and S2 present. No murmurs, rubs, or gallops. PULMONARY: Chest is clear to auscultation, no wheezing , no crackles. ABDOMEN: Soft, nontender, nondistended, normoactive bowel sounds. No palpable organomegaly. MUSCULOSKELETAL: No joint swelling or deformity. EXTREMITIES: No cyanosis, clubbing, or pedal edema. NEUROLOGICAL: Gross neurological examination did not reveal any focal deficits. SKIN: No rashes. no petechiae. - Labs CBC & Chem 7: 11/02/22 05:49 11/02/22 05:49 Labs: Abnormal Lab Results - Last 24 Hours (Table) 11/01/22 11/02/22 11/02/22 Range/Units 15:03 05:49 05:49 WBC 11.1 H 11.84 H (3.8-10.6) k/uL RDW 15.2 H (11.5-14.5) % Neutrophils # 9.95 H (1.80-7.70) X 10*3/uL Lymphocytes # 0.82 L (0.90-5.00) X 10*3/uL Eosinophils # 0.03 L (0.04-0.35) X 10*3/uL Creatinine 0.4 L (0.6-1.5) mg/dL BUN/Creatinine Ratio 41.25 H (12.00-20.00) Ratio Phosphorus 2.2 L (2.4-5.1) mg/dL Assessment and Plan Assessment: -Coffee-ground vomitus, status post EGD showed antral gastritis and esophagitis Distended esophagus, stomach and duodenum suspicious for acute gastroenteritis Versus SMA Syndrome Hyperlipidemia Hypertension Chronic heart failure History of rheumatoid arthritis Plan: DC IV fluid With Protonix Advance to liquid diet Surgery team on the case Labs and medication were reviewed.. Continue same treatment. Continue with symptomatic treatment. Resume home medication. Monitor labs and vitals. DVT and GI prophylaxis. Further recommendations as per clinical course of the patient DVT prophylaxis: no Subcutaneous heparin for GI bleed, S CD GI Prophylaxis: Ppi
[2022-11-03 06:39] LABS: Appearance,Urine Clear (Clear); Bacteria,Urine Rare /hpf; Bilirubin,Urine Negative (Negative); Blood,Urine Negative (Negative); Color,Urine Yellow; Glucose,Urine (UA) Negative (Negative); Ketones,Urine 2+ (Negative); Leukocyte Esterase,Urine Moderate (Negative); Nitrite,Urine Negative (Negative); PH, Urine 6.5 (5.0-8.0); Protein,Urine Trace (Negative); RBC,Urine 3 /hpf (0-5); Specific Gravity,Urine 1.022 (1.001-1.035); Squamous Epithelial Cell,Urine <1 /hpf (0-4); Urobilinogen,Urine <2.0 mg/dL (<2.0); WBC,Urine 5 /hpf (0-5)
[2022-11-03 08:18] VITALS: TEMP 97.6
[2022-11-03] MEDS: PANTOPRAZOLE 40 MG/10 ML VIAL IV SCH (09:20)
[2022-11-03] MEDS ORDERED: cloNIDine HCL 0.2 MG TAB PO SCH (10:15)
--- NOTE | 2022-11-03 10:20 | P.DS ---
Providers Date of admission: 11/01/22 01:25 Attending physician: Satish Pickett MD Consults: 11/01/22 01:25 Consult Physician Routine Consulting Provider: Baldo Villagran Consult Reason/Comments: nv Do you want consulting provider notified?: Yes Primary care physician: Santo Leo [facility] Course: Diagnoses: Coffee-ground vomitus, status post EGD showed antral gastritis and esophagitis Distended esophagus, stomach and duodenum suspicious for acute gastroenteritis Versus SMA Syndrome Hyperlipidemia Hypertension Chronic heart failure History of rheumatoid arthritis Hospital course: This is a pleasant 82 years old female with past medical history of Heart Failure, Hyperlipidemia, Hypertension, Rheumatoid Arthritis pt arrives to ED from [facility] via EMS for c/o coffee ground emesis x2 on tuesday yesterday. pt c/o nausea. . Patient developed by surgery team and underwent EGD: showed antral gastritis, esophagitis and no gastric outlet obstruction. Patient's symptoms improved, no abdominal pain, no nausea vomiting and tolerates diet. Patient is not on blood thinner prior to The hospitalization. Her symptoms improved with Protonix. Recommend to continue with Protonix 30 day and then stop under evaluated by her doctor for further treatment if needed. Patient is back to her baseline, no new symptoms. Patient told me she is eager to go back to her shelter today. She has mild tachycardia most likely because of stopping of clonidine on admission (stopped because of possible acute GI bleed) antedate can be resumed and to continue upon discharge with clonidine 0.2 mg. No signs symptoms of infection. No fever. No other new symptoms. No need for antibiotic for now. I discussed the case with surgical team prepared her for discharge today. Problems and management plan were discussed with the patient and he verbalized understanding and acceptance Patient was found stable and can be discharged home in guarded prognosis however he needs follow-up as an outpatient. Patient was instructed to follow up with PCP within one week and patient agrees Physical exam Gen: patient is a AAOx3, no distress CVS: S1-S2, RRR, no murmur Lungs: B/L CTA, no wheezing Abdomen: soft, no distention, no tenderness, positive bowel sounds -Extremity: no leg edema or induration. Both knees are in flexion posture secondary to contracture (looks chronic) ulnar deviations of the hand fingers bilaterally Time spent more than 35 minutes Patient Condition at Discharge: Fair Plan - Discharge Summary Discharge Rx Participant: No New Discharge Prescriptions: New Pantoprazole Sodium [Protonix] 40 mg PO DAILY 30 Days #30 tab Continue bisacodyL [Dulcolax] 10 mg RECTAL DAILY PRN PRN Reason: Constipation cloNIDine HCL [Catapres] 0.2 mg PO Q8H PRN PRN Reason: SBP>160 Acetaminophen Tab [Tylenol] 650 mg PO Q6H PRN PRN Reason: general discomfort Ensure Enlive 120 ml PO BID@0800,1700 polyethylene glycoL 3350 [Miralax] 17 gm PO DAILY@0800 L.acidoph,Paracasei, B.lactis [Probiotic] 1 cap PO DAILY@0800 [place]-3/Dha/Epa/Fish Oil [Fish Oil EC 1,200 mg Softgel] 1 cap PO DAILY@1700 Eucerin Cream 1 applic TOPICAL DAILY Magnesium Hydroxide [Milk of Magnesia Concentrate] 7,200 ml PO Q2D PRN PRN Reason: 2 days no BM Guaifenesin/Dextromethorphan [Guaifenesin-Dm 100-10 mg/5 ml] 10 ml PO Q4H PRN PRN Reason: Cough Na Phos,M-B/Na Phos,Di-Ba [Fleet Adult] 133 ml RECTAL DAILY PRN PRN Reason: Constipation Ipratropium-Albuterol Nebulize [Duoneb 0.5 mg-3 mg/3 ml Soln] 3 ml INHALATION RT-Q6H Carboxymethylcellulose Sodium [Refresh Tears] 1 drop BOTH EYES TID@0800,1700,2100 Acetaminophen Tab [Tylenol] 650 mg PO TID@0800,1700,2100 guaiFENesin [Mucinex] 600 mg PO BID@0800,1700 Vit C/E/Zn/Coppr/Lutein/Zeaxan [Preservision Areds 2 Softgel] 1 cap PO BID@0800,1700 Metoprolol Succinate (ER) [Toprol XL] 25 mg PO HS Denosumab [Prolia] 60 mg SQ Q180D Multivit-Min/FA/Lycopen/Lutein [Centrum Silver Tablet] 1 tab PO DAILY@1700 Cholecalciferol [Vitamin D3 (25 Mcg = 1000 Iu)] 25 mcg PO DAILY@1700 Discharge Medication List Acetaminophen Tab [Tylenol] 650 mg PO Q6H PRN 11/01/22 [History] Acetaminophen Tab [Tylenol] 650 mg PO TID@0800,1700,209911/01/22 [History] Carboxymethylcellulose Sodium [Refresh Tears] 1 drop BOTH EYES TID@0800,1700,209911/01/22 [History] Cholecalciferol [Vitamin D3 (25 Mcg = 1000 Iu)] 25 mcg PO DAILY@17011/01/22 [History] Denosumab [Prolia] 60 mg SQ Q180D 11/01/22 [History] Ensure Enlive 120 ml PO BID@0800,17011/01/22 [History] Eucerin Cream 1 applic TOPICAL DAILY 11/01/22 [History] Guaifenesin/Dextromethorphan [Guaifenesin-Dm 100-10 mg/5 ml] 10 ml PO Q4H PRN 11/01/22 [History] Ipratropium-Albuterol Nebulize [Duoneb 0.5 mg-3 mg/3 ml Soln] 3 ml INHALATION RT-Q6H 11/01/22 [History] L.acidoph,Paracasei, B.lactis [Probiotic] 1 cap PO DAILY@0811/01/22 [History] Magnesium Hydroxide [Milk of Magnesia Concentrate] 7,200 ml PO Q2D PRN 11/01/22 [History] Metoprolol Succinate (ER) [Toprol XL] 25 mg PO HS 11/01/22 [History] Multivit-Min/FA/Lycopen/Lutein [Centrum Silver Tablet] 1 tab PO DAILY@169911/01/22 [History] Na Phos,M-B/Na Phos,Di-Ba [Fleet Adult] 133 ml RECTAL DAILY PRN 11/01/22 [History] [place]-3/Dha/Epa/Fish Oil [Fish Oil EC 1,200 mg Softgel] 1 cap PO DAILY@169911/01/22 [History] Vit C/E/Zn/Coppr/Lutein/Zeaxan [Preservision Areds 2 Softgel] 1 cap PO BID@0800,1700 11/01/22 [History] bisacodyL [Dulcolax] 10 mg RECTAL DAILY PRN 11/01/22 [History] cloNIDine HCL [Catapres] 0.2 mg PO Q8H PRN 11/01/22 [History] guaiFENesin [Mucinex] 600 mg PO BID@0800,1700 11/01/22 [History] polyethylene glycoL 3350 [Miralax] 17 gm PO DAILY@0800 11/01/22 [History] Pantoprazole Sodium [Protonix] 40 mg PO DAILY 30 Days #30 tab 11/03/22 [Rx] Follow up Appointment(s)/Referral(s): Santo Bailey MD [Primary Care Provider] - 1-2 days Britany Becerril [NON-STAFF] - As Needed
[2022-11-03] MEDS ORDERED: LEVOFLOXACIN 500 MG TAB PO SCH (11:00)
--- NOTE | 2022-11-03 11:04 | P.PN ---
Subjective Progress Note Date: 11/03/22 CHIEF COMPLAINT: Nausea and vomiting HISTORY OF PRESENT ILLNESS: Patient status post EGD today revealing antral gastritis, esophagitis and no evidence of gastric outlet obstruction. Patient lying in bed comfortably. Reports no abdominal pain. No nausea or vomiting. Afebrile. Mildly tachycardic. PHYSICAL EXAM: VITAL SIGNS: Reviewed. GENERAL: Well-developed in no acute distress. ABDOMEN: Soft. Nondistended. Nontender. NEUROLOGIC: Alert and oriented. Cranial nerves II through XII grossly intact. ASSESSMENT: 1. Nausea and vomiting resolved. Status post EGD revealing antral gastritis, esophagitis and no evidence of gastric outlet obstruction PLAN: -Patient can be discharged from surgical standpoint -Advance diet to regular -Continue PPI Physician Financial Services Assistant note has been reviewed by physician. Signing provider agrees with the documented findings, assessment, and plan of care. Objective - Vital Signs Vital signs: Vital Signs Temp 97.6 F 11/03/22 07:46 Pulse 119 H 11/03/22 07:46 Resp 16 11/03/22 07:46 BP 152/83 11/03/22 07:46 Pulse Ox 91 L 11/03/22 07:46 FiO2 Intake & Output 11/02/22 11/03/22 11/03/22 18:59 06:59 18:59 Intake Total 200 Output Total 600 Balance 200 -600 Intake: IV 200 Output: Urine 600 Other: Voiding Method Diaper Diaper External Catheter External Catheter - Labs CBC & Chem 7: 11/02/22 05:49 11/02/22 05:49 Labs: Abnormal Lab Results - Last 24 Hours (Table) 11/03/22 Range/Units 06:00 Urine Protein Trace H (Negative) Urine Ketones 2+ H (Negative) Ur Leukocyte Esterase Moderate H (Negative) Urine Bacteria Rare H (None) /hpf
[2022-11-03 16:08] VITALS: BP 152/69; PULSE 108; RESP 15
== END 2022-11-03 16:55 | DRG 378 ==
LOC: EC 23:12 → 5NMEDONC 11-01 01:25 → 4SSUR 11-01 02:02
PROVIDERS: ADMIT Internal Medicine; ATTEND Internal Medicine
PROC: 0D9670Z Drainage of Stomach with Drainage Device, Via Natural or Artificial Opening (ICD-10-PCS; 2022-11-01)
PROC: 0DB78ZX Excision of Stomach, Pylorus, Via Natural or Artificial Opening Endoscopic, Diagnostic (ICD-10-PCS; principal; 2022-11-02 07:00)
DX: K92.0 Hematemesis (principal); K55.1 Chronic vascular disorders of intestine; K22.89 Other specified disease of esophagus; K29.70 Gastritis, unspecified, without bleeding; K20.90 Esophagitis, unspecified without bleeding; M06.9 Rheumatoid arthritis, unspecified; Z74.01 Bed confinement status; I11.0 Hypertensive heart disease with heart failure; I50.9 Heart failure, unspecified; E78.5 Hyperlipidemia, unspecified; K52.9 Noninfective gastroenteritis and colitis, unspecified; F41.9 Anxiety disorder, unspecified
CPT/HCPCS: 36415; 43239; 71045; 74176; 74177; 80053; 81001; 82140; 82271; 83735; 84100; 84484; 85025; 85027; 85610; 85730; 86850; 86900; 86901; 88305; 88312; 96374; 96375; 96376; 99285